=== PATIENT | female | born 1995 | race Caucasian/White ===

== ENCOUNTER 2017-07-06 13:16 | Emergency (ER) | payer OTHER ==
[~2017-07-06] VITALS: Ht 167.6 cm; Wt 104.3 kg
[2017-07-06 14:09] LABS: URINE BILIRUBIN NEGATIVE (Negative); URINE BLOOD 1+ (Negative); URINE CLARITY CLEAR; URINE COLOR YELLOW; URINE GLUCOSE-RANDOM NEGATIVE (Negative); URINE KETONES NEGATIVE (Negative); URINE LEUKOCYTES-REFLEX NEGATIVE (Negative); URINE NITRITE-REFLEX NEGATIVE (Negative); URINE PROTEIN NEGATIVE (Negative); URINE SPECIFIC GRAVITY >= 1.030 (1.005-1.030); URINE UROBILINOGEN 0.2 E.U./dl (0.2-1.0)
[2017-07-06 14:22] LABS: BACTERIA-REFLEX None Seen /HPF (None Seen); CASTS None Seen /LPF (None Seen); CRYSTALS None Seen /LPF (None Seen); MUCUS None Seen strn/LPF (None Seen); SQUAMOUS 4-10 Moderate /LPF (0-3); URINE RBC 3-10 Few /HPF (0-2); URINE WBC-REFLEX 0-5 Rare /HPF (0-5)
[2017-07-06] MEDS ORDERED: IBUPROFEN 800800 M1 PO (15:05)
[2017-07-06] MEDS ORDERED: FLEXERIL PO (15:05)
[2017-07-06 15:29] VITALS: BP 122/64
== END 2017-07-06 15:30 | disposition home or self-care (01) ==
LOC: M.ERS 13:16
PROVIDERS: Nurse Practitioner
DX: M54.5 Low back pain (principal)